=== PATIENT | female | born 1935 | race African-American/Black ===

== ENCOUNTER 2016-10-06 10:31 | Emergency (ER) | payer MEDICARE, MEDICAID ==
[~2016-10-06] VITALS: Ht 170.2 cm; Wt 73.0 kg
[~2016-10-06 10:31] MED LIST: AGGR PO; AMLO10TA4 PO; BRIM.2 BOTHEYE; Bisacodyl PO; CLOP75TA2 PO; CYM20 PO; LIP40 PO; LISI1TAB9 PO; PROT40 PO; TAMS0.4C31 PO
[2016-10-06] MEDS ORDERED: MORPHINE SULFATE 2 MG/ML CPJ (NOT FOR IM USE) IV ONE (14:45)
[2016-10-06 14:54] LABS: BASOPHILS % 0.7 % (0.0-2.0); DIFFERENTIAL COMMENT 0; EOSINOPHILS % 1.2 % (0.0-5.0); HEMATOCRIT. 43.9 % (36.0-48.0); HEMOGLOBIN. 15.4 g/dL (12.0-16.0); LYMPHOCYTES % 30.9 % (20.0-50.0); MEAN CORPUSCULAR HEMOGLOBIN 30.9 pg (28.0-32.0); MEAN CORPUSCULAR HGB CONC 35.2 g/dL (31.0-37.0); MEAN CORPUSCULAR VOLUME 87.8 fL (81.0-99.0); MEAN PLATELET VOLUME 9.7 fl (7.4-10.4); MONOCYTES % 10.2 % (2.0-8.0); PLATELET 139 x1000/uL (130-400); RED CELL DISTRIBUTION WIDTH 13.8 % (11.6-14.6); WHITE BLOOD COUNT 6.9 x1000/uL (4.5-11.0)
[2016-10-06 15:00] LABS: CHLORIDE 100 mEq/L (98-107); INDEX HEMOLYSI 1 (1-3); INDEX ICTERIC 1 (1-4); INDEX LIPEMIC 1 (1-3)
[2016-10-06 15:06] LABS: ALANINE AMINOTRANSFERASE 24 IU/L (13-61); ALBUMIN 3.6 g/dL (3.4-5.0); ANION GAP 12; CALCIUM 10.3 mg/dL (8.5-10.1); CARBON DIOXIDE 29 mEq/L (21-32); LIPASE 217 IU/L (73-393); UREA NITROGEN BLOOD 10 mg/dL (7-21); eGFR > 60 mL/min (>60)
[2016-10-06 15:09] LABS: INR 1.1; PROTHROMBIN TIME 11.3 sec
[2016-10-06] MEDS ORDERED: ONDANSETRON HCL 4MG/2ML VIAL IV ONE (15:30)
[2016-10-06 15:42] LABS: CLARITY URINE CLEAR (CLEAR); COLOR URINE YELLOW (YELLOW); GLUCOSE URINE NEGATIVE (NEGATIVE); KETONES URINE NEGATIVE (NEGATIVE); LEUKOCYTE ESTERASE URINE NEGATIVE (NEGATIVE); NITRITE URINE NEGATIVE (NEGATIVE); OCCULT BLOOD URINE NEGATIVE (NEGATIVE); PH URINE 8.5 (4.5-8.0); PROTEIN URINE NEGATIVE (NEGATIVE); SPECIFIC GRAVITY URINE 1.009 (1.005-1.030); UROBILINOGEN URINE 0.2 E.U./dL (0.2-1.0)
[2016-10-06 15:58] LABS: *AMPHETAMINES SCREEN URINE NEGATIVE (NEGATIVE); *BARBITURATES SCREEN URINE NEGATIVE (NEGATIVE); *BENZODIAZEPINES SCREEN URINE NEGATIVE (NEGATIVE); *COCAINE SCREEN URINE NEGATIVE (NEGATIVE); CANNABINOID URINE SCREEN NEGATIVE (NEGATIVE); ECSTASY MDMA SCREEN URINE NEGATIVE (NEGATIVE); METHADONE URINE SCREEN NEGATIVE (NEGATIVE); OPIATES URINE SCREEN NEGATIVE (NEGATIVE); PHENCYCLIDINE URINE SCREEN NEGATIVE (NEGATIVE)
[2016-10-06 17:39] VITALS: BP 167/84
[2016-10-13] MEDS ORDERED: TAMS0.4C31 PO (16:30)
== END 2016-10-06 20:37 | disposition home or self-care (01) ==
LOC: ER 12:54
DX: A08.4 Viral intestinal infection, unspecified (principal); E86.0 Dehydration; R73.03 Prediabetes; I10 Essential (primary) hypertension; H40.9 Unspecified glaucoma; E78.00 Pure hypercholesterolemia, unspecified; K57.30 Diverticulosis of large intestine without perforation or abscess without bleeding; Z90.710 Acquired absence of both cervix and uterus
CPT/HCPCS: 36415; 71010; 74176; 80053; 80305; 81003; 83036; 83690; 85025; 85610; 93005; 96374; 96375; 99285; J2270; J2405

== ENCOUNTER 2017-03-13 11:40 | Observation (INO) | payer MEDICARE, MEDICAID ==
[~2017-03-13] VITALS: Ht 162.6 cm; Wt 72.6 kg
[~2017-03-13 11:40] MED LIST changes: +CLOP75TA15 PO; -CLOP75TA2 PO
[2017-03-13] MEDS ORDERED: AGGR PO (11:47)
[2017-03-13 12:30] LABS: BASOPHILS % 0.4 % (0.0-2.0); EOSINOPHILS % 0.1 % (0.0-5.0); HEMATOCRIT. 41.7 % (36.0-48.0); HEMOGLOBIN. 14.7 g/dL (12.0-16.0); LYMPHOCYTES % 15.8 % (20.0-50.0); MEAN CORPUSCULAR HEMOGLOBIN 31.4 pg (28.0-32.0); MEAN CORPUSCULAR VOLUME 89.3 fL (81.0-99.0); MEAN PLATELET VOLUME 9.1 fl (7.4-10.4); MONOCYTES % 6.3 % (2.0-8.0); NEUTROPHILS % 77.4 % (40.0-76.0); PLATELET 165 x1000/uL (130-400); RED BLOOD CELL COUNT 4.67 mill/uL (4.2-5.4); RED CELL DISTRIBUTION WIDTH 13.5 % (11.6-14.6)
[2017-03-13 12:44] LABS: PARTIAL THROMBOPLASTIN TIME 26.1 sec (23.4-31.0); PROTHROMBIN TIME 10.8 sec (9.4-11.6)
[2017-03-13 12:48] LABS: CARBON DIOXIDE 25 mEq/L (21-32); CHLORIDE 100 mEq/L (98-107)
[2017-03-13 12:49] LABS: TROPONIN I < 0.02 ng/mL (0.00-0.04)
[2017-03-13] MEDS ORDERED: MECLIZINE 25MG TABLET PO ONE (13:00)
[2017-03-13] MEDS ORDERED: ENALAPRIL 2.5MG TABLET PO ONE (13:00)
[2017-03-13 13:30] LABS: CLARITY URINE CLOUDY (CLEAR); COLOR URINE YELLOW (YELLOW); GLUCOSE URINE NEGATIVE (NEGATIVE); KETONES URINE NEGATIVE (NEGATIVE); LEUKOCYTE ESTERASE URINE NEGATIVE (NEGATIVE); NITRITE URINE NEGATIVE (NEGATIVE); OCCULT BLOOD URINE NEGATIVE (NEGATIVE); PH URINE 8.5 (4.5-8.0); PROTEIN URINE NEGATIVE (NEGATIVE); SPECIFIC GRAVITY URINE 1.013 (1.005-1.030); UROBILINOGEN URINE 0.2 E.U./dL (0.2-1.0)
[2017-03-13] MEDS ORDERED: HYDRALAZINE 20MG/ML VIAL IV ONE (16:45)
[2017-03-13] MEDS ORDERED: CLONIDINE 0.1MG TABLET PO PRN (19:15)
[2017-03-13] MEDS ORDERED: DIPHENHYDRAMINE 50MG/ML VIAL IV PRN (19:15)
[2017-03-13] MEDS ORDERED: DOCUSATE SODIUM 100MG CAPSULE PO PRN (19:15)
[2017-03-13] MEDS ORDERED: ACETAMINOPHEN 325MG TABLET PO PRN (19:15)
[2017-03-13] MEDS ORDERED: ACETAMINOPHEN 650MG SUPP PR PRN (19:15)
[2017-03-13] MEDS ORDERED: MAGNESIUM/ALUMINUM HYDROXIDE/SIMETHICONE 30ML UDC PO PRN (19:15)
[2017-03-13] MEDS ORDERED: ONDANSETRON HCL 4MG/2ML VIAL IV PRN (19:15)
[2017-03-13] MEDS ORDERED: IPRATROPIUM/ALBUTEROL 0.5-3(2.5)MG/3ML NEB INH PRN (19:15)
[2017-03-13] MEDS ORDERED: NA PHOS,M-B/NA PHOS,DI-BA ENEMA 118ML PR PRN (19:15)
[2017-03-13] MEDS ORDERED: ACETAMINOPHEN 650MG/20.3ML UDC GT PRN (19:15)
[2017-03-13] MEDS ORDERED: GUAIFENESIN 200MG/10ML SUGAR FREE UDC PO PRN (19:15)
[2017-03-13] MEDS: HYDROCODONE/ACETAMINOPHEN 5/325MG TABLET PO PRN (19:55)
[2017-03-13 20:00] VITALS: BP 177/82
[2017-03-13 20:47] VITALS: BP 177/82
[2017-03-13] MEDS: ENOXAPARIN 40MG/0.4ML SYR SUBCUT SCH (23:11)
[2017-03-13] MEDS: SODIUM CHLORIDE 0.9% INJ 3ML FLUSH IVF SCH (23:11)
[2017-03-13 23:12] VITALS: BP 159/86
[2017-03-13 23:18] LABS: CREATINE KINASE 86 IU/L (26-192); TROPONIN I < 0.02 ng/mL (0.00-0.04)
[2017-03-14] VITALS (7 sets, daily range): BP systolic 95–173; BP diastolic 52–86
[2017-03-14] MEDS ORDERED: ENALAPRIL 2.5MG/2ML VIAL 2ML IV PRN (01:00)
[2017-03-14] MEDS: AMLODIPINE 10MG TABLET PO SCH ×2 (01:00→08:34)
[2017-03-14] MEDS: SODIUM CHLORIDE 0.9% INJ 3ML FLUSH IVF SCH ×3 (06:29→21:27)
[2017-03-14] MEDS: HYDROCODONE/ACETAMINOPHEN 5/325MG TABLET PO PRN (08:34)
[2017-03-14 08:43] LABS: BASOPHILS % 0.5 % (0.0-2.0); EOSINOPHILS % 0.7 % (0.0-5.0); HEMATOCRIT. 39.4 % (36.0-48.0); HEMOGLOBIN. 13.8 g/dL (12.0-16.0); LYMPHOCYTES % 27.6 % (20.0-50.0); MEAN CORPUSCULAR HEMOGLOBIN 31.2 pg (28.0-32.0); MEAN CORPUSCULAR VOLUME 88.9 fL (81.0-99.0); MEAN PLATELET VOLUME 9.5 fl (7.4-10.4); MONOCYTES % 10.2 % (2.0-8.0); PLATELET 156 x1000/uL (130-400); RED BLOOD CELL COUNT 4.43 mill/uL (4.2-5.4); RED CELL DISTRIBUTION WIDTH 13.8 % (11.6-14.6)
[2017-03-14 09:12] LABS: CARBON DIOXIDE 27 mEq/L (21-32); CHLORIDE 99 mEq/L (98-107); CREATINE KINASE 75 IU/L (26-192); HDL CHOLESTEROL 43 mg/dL (40-59); LDL CHOLESTEROL 163 mg/dL (5-100); TROPONIN I < 0.02 ng/mL (0.00-0.04)
[2017-03-14 09:45] LABS: CLARITY URINE CLEAR (CLEAR); COLOR URINE YELLOW (YELLOW); GLUCOSE URINE NEGATIVE (NEGATIVE); KETONES URINE NEGATIVE (NEGATIVE); LEUKOCYTE ESTERASE URINE NEGATIVE (NEGATIVE); NITRITE URINE NEGATIVE (NEGATIVE); OCCULT BLOOD URINE NEGATIVE (NEGATIVE); PH URINE 8.5 (4.5-8.0); PROTEIN URINE NEGATIVE (NEGATIVE); SPECIFIC GRAVITY URINE 1.015 (1.005-1.030); UROBILINOGEN URINE 0.2 E.U./dL (0.2-1.0)
[2017-03-14] MEDS ORDERED: PNEUMOCOCCAL 23-VAL P-SAC VAC 0.5 ML IM ONE (10:00)
[2017-03-14 10:07] LABS: *AMPHETAMINES SCREEN URINE NEGATIVE (NEGATIVE); *BARBITURATES SCREEN URINE NEGATIVE (NEGATIVE); *BENZODIAZEPINES SCREEN URINE NEGATIVE (NEGATIVE); *COCAINE SCREEN URINE NEGATIVE (NEGATIVE); CANNABINOID URINE SCREEN NEGATIVE (NEGATIVE); METHADONE URINE SCREEN NEGATIVE (NEGATIVE); OPIATES URINE SCREEN PRESUMTIVE POSITIVE (NEGATIVE); PHENCYCLIDINE URINE SCREEN NEGATIVE (NEGATIVE)
[2017-03-14] MEDS ORDERED: KETOROLAC 30MG/ML VIAL IV NR (18:00)
[2017-03-14] MEDS: CLOPIDOGREL 75MG TABLET PO SCH (18:22)
[2017-03-14] MEDS: PANTOPRAZOLE 40MG DR TABLET PO SCH (18:22)
[2017-03-14] MEDS: TAMSULOSIN HCL 0.4MG SR CAPSULE PO SCH (18:23)
[2017-03-14] MEDS ORDERED: ATORVASTATIN CALCIUM 40MG TABLET PO SCH (21:00)
[2017-03-14] MEDS: DULOXETINE HCL 20MG DR CAPSULE PO SCH (21:26)
[2017-03-14] MEDS: BRIMONIDINE 0.2% OPHTH DROPS 5ML BOTHEYE SCH (21:26)
[2017-03-14] MEDS: ENOXAPARIN 40MG/0.4ML SYR SUBCUT SCH (21:27)
[2017-03-15] VITALS: BP 112/56
[2017-03-15 04:00] VITALS: BP 132/69
[2017-03-15] MEDS: SODIUM CHLORIDE 0.9% INJ 3ML FLUSH IVF SCH ×2 (06:39→14:55)
[2017-03-15 08:00] VITALS: BP 149/75
[2017-03-15] MEDS: TAMSULOSIN HCL 0.4MG SR CAPSULE PO SCH (08:49)
[2017-03-15] MEDS: DULOXETINE HCL 20MG DR CAPSULE PO SCH (08:49)
[2017-03-15] MEDS: PANTOPRAZOLE 40MG DR TABLET PO SCH (08:49)
[2017-03-15] MEDS: AMLODIPINE 10MG TABLET PO SCH (08:49)
[2017-03-15] MEDS: CLOPIDOGREL 75MG TABLET PO SCH (08:49)
[2017-03-15 12:00] VITALS: BP 145/53
[2017-03-15] MEDS: BRIMONIDINE 0.2% OPHTH DROPS 5ML BOTHEYE SCH (12:03)
[2017-03-15] MEDS ORDERED: BISACODYL PO PRN (15:45)
[2017-03-15] MEDS ORDERED: AMLODIPINE 10MG TABLET PO SCH (15:45)
[2017-03-15] MEDS ORDERED: LIP40 PO (15:49)
[2017-03-15] MEDS ORDERED: BRIM.2 BOTHEYE (15:49)
[2017-03-15] MEDS ORDERED: CYM20 PO (15:49)
[2017-03-15] MEDS ORDERED: PROT40 PO (15:49)
[2017-03-15] MEDS ORDERED: AGGR PO ×2 (15:49→15:58)
[2017-03-15] MEDS ORDERED: AMLO10TA4 PO (15:49)
[2017-03-15] MEDS ORDERED: TAMS0.4C31 PO (15:49)
[2017-03-15] MEDS: HYDROCODONE/ACETAMINOPHEN 5/325MG TABLET PO PRN (15:54)
[2017-03-15] MEDS ORDERED: LISI-604 PO (15:55)
[2017-03-15] MEDS ORDERED: HYDR12.54 PO (15:56)
[2017-03-15] MEDS ORDERED: BISACODYL 10MG SUPP PR PRN (16:00)
[2017-03-15 16:11] VITALS: BP 110/62
[2017-03-15] MEDS ORDERED: ASPIRIN/DIPYRIDAMOLE 25MG/200MG CAPSULE SA PO SCH (17:00)
[2017-03-16] MEDS ORDERED: HYDROCHLOROTHIAZIDE 12.5MG CAPSULE PO SCH (09:00)
[2017-03-16] MEDS ORDERED: LISINOPRIL 10MG TABLET PO SCH (09:00)
== END 2017-03-15 17:20 | disposition home or self-care (01) ==
LOC: ER 11:40 → 5WST 13:49 → INTOOBSV 13:49 → EDBEDREQ 13:51 → ENRESERV 15:26 → 5WST 19:33
PROVIDERS: ADMIT Family Medicine; ATTEND Family Medicine
DX: R51 Headache (principal); R53.1 Weakness; E78.5 Hyperlipidemia, unspecified; I10 Essential (primary) hypertension; M47.9 Spondylosis, unspecified; E66.9 Obesity, unspecified; Z86.73 Personal history of transient ischemic attack (TIA), and cerebral infarction without residual deficits; Z87.442 Personal history of urinary calculi
CPT/HCPCS: 36415; 70450; 71010; 72125; 72128; 72131; 80053; 80061; 80305; 81001; 81003; 82550; 83605; 83690; 83735; 84484; 85025; 85610; 85730; 87040; 87086; 90471; 93005; 96372; 96374; 96375; 99285; G0378; J0360; J1650; J1885; 90732; J7620; J8597

== ENCOUNTER → 2017-04-07 | Outpatient (CLI) | payer MEDICARE, MEDICAID ==
[~2017-04-07] MED LIST changes: -Bisacodyl PO; -CLOP75TA15 PO; +HYDR12.54 PO; +LISI-604 PO; -LISI1TAB9 PO
[2017-04-07 11:42] LABS: BASOPHILS % 0.6 % (0.0-2.0); EOSINOPHILS % 1.4 % (0.0-5.0); HEMATOCRIT. 41.3 % (36.0-48.0); HEMOGLOBIN. 14.6 g/dL (12.0-16.0); LYMPHOCYTES % 27.8 % (20.0-50.0); MEAN CORPUSCULAR HEMOGLOBIN 31.5 pg (28.0-32.0); MEAN CORPUSCULAR VOLUME 89.4 fL (81.0-99.0); MEAN PLATELET VOLUME 8.8 fl (7.4-10.4); MONOCYTES % 11.2 % (2.0-8.0); PLATELET 166 x1000/uL (130-400); RED BLOOD CELL COUNT 4.62 mill/uL (4.2-5.4); RED CELL DISTRIBUTION WIDTH 13.6 % (11.6-14.6)
[2017-04-07 11:45] LABS: CARBON DIOXIDE 27 mEq/L (21-32); CHLORIDE 102 mEq/L (98-107); HDL CHOLESTEROL 58 mg/dL (40-59); LDL CHOLESTEROL 70 mg/dL (5-100)
[2017-04-07 15:07] LABS: CLARITY URINE CLEAR (CLEAR); COLOR URINE YELLOW (YELLOW); GLUCOSE URINE NEGATIVE (NEGATIVE); KETONES URINE NEGATIVE (NEGATIVE); LEUKOCYTE ESTERASE URINE NEGATIVE (NEGATIVE); NITRITE URINE NEGATIVE (NEGATIVE); OCCULT BLOOD URINE NEGATIVE (NEGATIVE); PROTEIN URINE NEGATIVE (NEGATIVE); SPECIFIC GRAVITY URINE 1.009 (1.005-1.030); UROBILINOGEN URINE 0.2 E.U./dL (0.2-1.0)
== END | disposition home or self-care (01) ==
LOC: LAB 11:01
DX: I10 Essential (primary) hypertension (principal); E78.5 Hyperlipidemia, unspecified; Z85.038 Personal history of other malignant neoplasm of large intestine
CPT/HCPCS: 36415; 80053; 80061; 81003; 82378; 85025

== ENCOUNTER 2017-07-30 07:32 | Emergency (ER) | payer MEDICARE, MEDICAID ==
[~2017-07-30] VITALS: Ht 162.6 cm; Wt 75.0 kg
[2017-07-30] MEDS ORDERED: ONDANSETRON HCL 4MG/2ML VIAL IV ONE (08:00)
[2017-07-30] MEDS ORDERED: KETOROLAC 15MG/ML VIAL IV ONE (08:00)
[2017-07-30 08:35] LABS: BASOPHILS % 0.6 % (0.0-2.0); EOSINOPHILS % 2.2 % (0.0-5.0); HEMATOCRIT. 44.6 % (36.0-48.0); HEMOGLOBIN. 15.4 g/dL (12.0-16.0); LYMPHOCYTES % 30.4 % (20.0-50.0); MEAN CORPUSCULAR HEMOGLOBIN 31.2 pg (28.0-32.0); MEAN CORPUSCULAR VOLUME 90.5 fL (81.0-99.0); MEAN PLATELET VOLUME 9.3 fl (7.4-10.4); MONOCYTES % 13.2 % (2.0-8.0); NEUTROPHILS % 53.6 % (40.0-76.0); PLATELET 166 x1000/uL (130-400); RED BLOOD CELL COUNT 4.92 mill/uL (4.2-5.4); RED CELL DISTRIBUTION WIDTH 13.6 % (11.6-14.6)
[2017-07-30 08:41] LABS: CHLORIDE 103 mEq/L (98-107); PROTHROMBIN TIME 10.7 sec (9.4-11.6)
[2017-07-30 10:22] LABS: CLARITY URINE CLEAR (CLEAR); COLOR URINE YELLOW (YELLOW); KETONES URINE NEGATIVE (NEGATIVE); LEUKOCYTE ESTERASE URINE TRACE (NEGATIVE); NITRITE URINE NEGATIVE (NEGATIVE); OCCULT BLOOD URINE NEGATIVE (NEGATIVE); PROTEIN URINE NEGATIVE (NEGATIVE); SPECIFIC GRAVITY URINE 1.011 (1.005-1.030); UROBILINOGEN URINE 0.2 E.U./dL (0.2-1.0)
[2017-07-30] MEDS ORDERED: ONDANSETRON HCL 4MG TABLET PO ONE (12:00)
[2017-07-30] MEDS ORDERED: ACETAMINOPHEN 325MG TABLET PO ONE (12:00)
[2017-07-30 14:25] VITALS: BP 147/98
== END 2017-07-30 14:50 | disposition home or self-care (01) ==
LOC: ER 07:45
DX: R53.1 Weakness (principal); R05 Cough; E78.00 Pure hypercholesterolemia, unspecified; I10 Essential (primary) hypertension; H40.9 Unspecified glaucoma; Z79.82 Long term (current) use of aspirin; Z86.73 Personal history of transient ischemic attack (TIA), and cerebral infarction without residual deficits; Z87.442 Personal history of urinary calculi; Z90.710 Acquired absence of both cervix and uterus; Z98.890 Other specified postprocedural states
CPT/HCPCS: 36415; 71045; 74176; 80053; 81003; 83605; 85025; 85610; 87040; 87086; 87804; 93005; 96374; 96375; 99285; J1885; J2405; Q0162